=== PATIENT | male | born 1960 | race Two or more races ===

== ENCOUNTER 2020-09-21 11:11 | Emergency (ER) | payer SELFPAY ==
[~2020-09-21] VITALS: Ht 175.3 cm; Wt 119.7 kg
[2020-09-21 11:55] VITALS: BP 131/85
== END 2020-09-21 14:08 | disposition home or self-care (01) ==
LOC: ER 11:11
DX: U07.1 COVID-19 (principal); J18.9 Pneumonia, unspecified organism; E11.9 Type 2 diabetes mellitus without complications; E78.5 Hyperlipidemia, unspecified
CPT/HCPCS: 71045